=== PATIENT | female | born 1975 | race Caucasian/White ===

== ENCOUNTER 2016-08-21 08:06 | Day surgery (SDC) | payer OTHER ==
--- NOTE | 2016-08-17 08:14 | PCM.HPSURG ---
Subjective Date of Service: Aug 06, 2016 Referring Provider: Admitting Physician: Primary Care Physician: Win Burkett MD Attending Physician: Carlos Walls MD Chief Complaint SEE ABOVE History of Present Illness Patient: Radha Hightower Date of : 1975 Visit Type: Pre Op Visit Date: 08/06/2016 01:00 PM This 40 year old female presents for Preop MIS L4-5 Mandeep. Decopress/Microdisc & Fat Graft. History of Present Illness: 1. Preop MIS L4-5 Mandeep. Decopress/Microdisc & Fat Graft Radha Hightower is a 40 year old female referred by the primary care Provider ( PCP) Luisa YAN who presents today's date 08/06/2016 for a preoperative type of appointment concerning the decision for surgery involving minimally invasive microscopic bilateral lumbar sacral decompression at the L4- 5 level with approach from the right side, microdiscectomy, & harvest of subcutaneous fat from separate incision for epidural fat graft secondary to a diagnosis of lumbar radiculopathy with related complaints of severe, intractable , and debilitating lower back pain radiating to the bilateral lower extremities with numbness, & paresthesias. This patient was last evaluated by Dr. Carlos Walls M.D. on 06/26/2016 documenting persistent lower back and bilateral leg pain right greater than left. Patient has a chronic central disc herniation asymmetric to the left with associated central canal stenosis. She had an epidural injection with Dr. Reynoso at the L4-L5 level and had significant improvement of her symptoms after the injection. The steroid effect wore off and the patient's pain worsened and the patient was evaluated in the emergency room and MRI scan was obtained with an diffusion operator imaging. This showed evidence of moderate posterior central disc protrusion slightly asymmetrically left AP diameter is 6 mm there was evidence of a small right posterior posterior disc protrusion at L2-3. No history of any progressive weakness or recent changes in bladder or bowel dysfunction. According to Dr. Walls the patient has chronic & persistent bilateral lumbar radiculopathy secondary to central & slightly left-sided disc herniation causing associated acquired spinal & lateral recess narrowing which improved on a temporary basis after diagnostic epidural steroid injection. The patient has failed conservative treatment & is an appropriate candidate to proceed with lumbar spinal decompression epidural fat graft. Dr. Walls & the patient discussed all the risks and benefits associated with previous seizure as well as reasonable expectations with respect to surgical outcomes & patient elected to proceed with surgery as planned. The patient has a reported pertinent past medical, surgical, family, & social history for bilateral detached retinal repair, hysterectomy, breast reduction, laparotomies, tonsillectomy, appendectomy, hypertension, obesity, fibromyalgia, Connective tissue disorder, interstitial cystitis, history of peripheral edema, dysuria, unrelated chronic urinary incontinence, chronic joint pain, depression , anxiety, chronic pain management, & possible chronic pain syndrome with no other then the above known positive history &/or review of all other organ systems. The patient's related complaints have been a serious detriment to their happiness and activities of daily living. Having failed conservative treatment the patient presents today for their decision for surgery appointment involving minimally invasive microscopic bilateral lumbar sacral decompression at the L4- 5 level with approach from the right side, microdiscectomy, & harvest of subcutaneous fat from separate incision for epidural fat graft for treatment of lumbar radiculopathy; related to severe, intractable, and debilitating lower back pain radiating to the bilateral lower extremities with numbness, & paresthesias. The procedure is scheduled to be performed by Dr. Carlos Walls M.D. on 03/23/2017. PERIOPERATIVE NOTE: We have requested authorization to continue or recommended changes for her Hydroxychloroquine/Plaquenil perioperatively with surgery scheduled on 08/21/16 from the patient's General Matcher Dr. Rekha Phillips M.D. # with response still pending? Medical/Surgical/Interim History Reviewed, no change. Last detailed document date:08/06/2016. Family History: Reviewed, no changes. Last detailed document date:08/06/2016. Social History: Tobacco use reviewed. Reviewed, no changes. Last detailed document date: 08/06/2016. Allergies: Ingredient Reaction Medication Name Comment SULFAMETHOXAZOLE Hives Bactrim TRIMETHOPRIM Hives Bactrim Reviewed, no changes. Review of Systems System Neg/Pos Details MS Positive Myalgia. Psych Negative Anxiety and depression. Neuro Negative Dizziness, headache and seizures. GI Negative Abdominal pain, constipation, diarrhea, nausea and vomiting. Negative Dysuria, urge incontinence and urinary incontinence. Cardio Negative Chest pain, irregular heartbeat/palpitations, leg swelling and pacemaker. Constitutional Negative Chills and fever. Christopher/Lymph Negative Blood clots. Respiratory Negative Dyspnea, apnea and wheezing. Endocrine Negative Weight gain and weight loss. MS Negative Back pain, bone/joint symptoms and muscle weakness. ENMT Negative Hearing loss. Eyes Negative Double vision and vision loss. Integumentary Negative Mrsa and rash. Vital Signs Height Time ft in cm Last Measured Height Position % 12:36 PM 5.0 6.00 167.64 08/06/2016 Weight/BSA/BMI Time lb oz kg Context % BMI kg/m2 BSA m2 12:36 PM 186.20 84.459 dressed with shoes 30.05 Blood Pressure Time BP mm/Hg Position Side Site Method Cuff Size 12:36 PM 109/70 sitting left wrist automatic adult large Temperature/Pulse/Respiration Time Temp F Temp C Temp Site Pulse/min Pattern Resp/ min 12:36 PM 98.7 37.1 temporal 60 regular Pain Scale Time Pain Score Method 12:36 PM 7/10 Numeric Pain Intensity Scale Measured By Time Measured by 12:36 PM Denise Fields MA Physical Exam Exam Findings Details Comments Gen.: Patient was examination and appears to be a moderate muscle skeletal discomfort HEET: Normal with full range of motion Chest : Clear P and A Heart: Regular rate and rhythm Abdomen; soft non-tender normal bowel sounds Ext.: 5/5 strenght. Numbness in the L4 and L5 distribution Back: Evidence of involuntary paraspinous muscle spasm. Radiographic imaging: Report from the MRI scan performed on 06/25/2016 is evidence of moderate posterior disc protrusion centrally asymmetrical left side. This causes central canal stenosis of moderate degree and moderate to severe lateral recess narrowing.. Assessment/Plan # Detail Type Description 1. Assessment Lumbar radiculopathy (M54.16). 2. Assessment Preoperative examination (Z01.818). Patient Plan We including your Attending Surgeon have discussed the risks and benefits associated your scheduled procedure which you have verbally acknowledged understanding including but not limited to the possibility of an outcome that we are unable to predict or was not mentioned. 1. You are scheduled for a minimally invasive microscopic bilateral lumbar sacral decompression at the L4-5 level with approach from the right side, microdiscectomy, & harvest of subcutaneous fat from separate incision for epidural fat graft with Dr. Carlos Walls M.D. at [facility] on . 2. Check in time 8 a.m. Also please ignore instructions below if told otherwise by your preadmission nurse or if you do not take the medications listed below. 3. Nothing to eat after midnight the night before surgery. You may take all of your "approved" medications with small sips of water. Remember to take your a.m. hypertension medication if it is a beta yamilet and ends in "olol. Otherwise ask your doctor if you need to hold your a.m. hypertension medication. 4. No aspirin, ibuprofen, Naprosyn, or other NSAIDs starting 7 days prior to surgery. 5. Please stop Warfarin/Coumadin or other blood thinners such as Plavix, Aggrenox, or Xarelto 7 days prior to your surgical procedure and follow specific instructions from your prescribing provider. 6. Please stop Lovenox bridging in the morning one day prior to procedure. 7. Please stop Suboxone/Buprenorphine at least 4 days prior to procedure. 8. Go to the hospital today to get her preoperative testing done. Take the order form to the surgery desk on the second floor of the [facility], [facility] (main entrance next to the emergency entrance). I will notify you if there is any test results that require further workup prior to surgery. 9. Follow the instructions you were given today, use the cleansing cloths the night before as well as the morning of her surgery. 10. If you are prescribed inhalers, CPAP or BiPAP machines you use at home bring along with you to the hospital. 11. ONLY If you take medications for Diabetes: If you have an insulin pump continue lowest (typically night-time) basal rate into the a.m. If you do not have a pump check h your a.m. blood sugar and hold insulin if BS less than 100. If you are taking long-acting, intermediate acting (NPH) or 70/30 preparation : Take half on day of procedure. If you are taking ultra long-acting insulin such as glargine, Lantus either at night or in the a.m. continue as scheduled ( including day of surgery). If you take short acting regular insulin (insulin not delivered via pump) discontinue on day of procedure. 12. Please call if you have any questions before your surgery: [phone]. Today's instructions/counseling include(s) Pre-operative instructions given to the patient and or legal wire rope sales representative(s) orally and in writing. 13. Our office will contact you if there are any test results that require further workup prior to surgery. Provider Plan The patient's history and examination as well as radiological findings were reviewed with Dr. Carlos Walls M.D. and conveyed the patient in detail. The findings are consistent with lumbar radiculopathy and are most likely the cause of the patient's severe, intractable, debilitating low back pain radiating to the bilateral lower extremities numbness, & paresthesias. The patient has failed extensive conservative treatment for this condition. The treatment options were discussed with the patient. The options include attempt to live with the condition, reattempt conservative treatment, try a pain management intervention / injection or consider a surgical intervention. We are not extremely optimistic that further conservative treatment, pain management intervention and/or injection will adequately resolve the patient's symptoms of severe, intractable, debilitating low back pain radiating the bilateral lower extremities with numbness & paresthesias. Therefore we recommend minimally invasive microscopic bilateral lumbar sacral decompression at the L4-5 level with approach from the right side, microdiscectomy, & harvest of subcutaneous fat from separate incision for epidural fat graft. The patient was provided/offered educational materials pertaining to their diagnosis and the above discussed procedure. We discussed the risks and benefits associated with this surgery. A spine model was used to explain the nature of this type of surgery. The risk of the required anesthesia was also mentioned including but not limited to organ failure such as heart attack, pneumonia and stroke even . The risk of this type of surgery was also mentioned. Including but not limited to an unsuccessful outcome, residual symptoms, referred or radiating posterior spinal myofascial inflammatory pain or spasm, post operative instability, instrumentation failure, sensory changes, blood loss, blood clots, wound infection, spinal cord or nerve damage, CSF or lymph leak, damage to neighboring structures such as the abdominal vasculature, bowel, ureter, and bladder, resulting in temporary or permanent dysfunction, even disability, paralysis, and . The recovery of this type of surgery was also mentioned. There is a 15% chance of recurrent disc herniation with a discectomy. The chances for improvement of the bilateral lower extremity lumbar radiculopathy related symptomology at one year is 70-80%. The chances of improvement of local mechanical &/or unrelated lower back pain is 50%. The patient verbalized understanding all the risks and benefits, knowing that it is impossible to predict or guarantee every surgical outcome; and would like to proceed with the above discussed procedure anyways. Surgery is scheduled for 08/21/2016. The standard [facility] preoperative screening tests, medicine restrictions, and logistical protocols apply. Any preoperative testing is within normal limits to undergo the above discussed procedure unless otherwise noted in the medical record. PERIOPERATIVE NOTE: We have requested authorization to continue or recommended changes for her Hydroxychloroquine/Plaquenil perioperatively with surgery scheduled on 08/21/16 from the patient's General Matcher Dr. Rekha Phillips M.D. # with response still pending? Clinical Guidelines (Reviewed, no changes:Last detailed document date:) Medications (added, continued or stopped this visit): Start Date Medication Directions Stop Date bupropion HCl SR 150 mg tablet,sustained-release take 1 tablet by oral route 2 times every day clonazepam 0.5 mg tablet take 1 tablet by oral route 3 times every day 08/20/2016 cyclobenzaprine 5 mg tablet take 1-2 tablet by oral route every 8 hours as needed for spasm. hydrocodone 10 mg-acetaminophen 300 mg tablet take 1 tablet by oral route every 6 hours as needed hydroxychloroquine 200 mg tablet take 1 tablet by oral route every day Imitrex 50 mg tablet take 2 tablet by oral route once with fluids as early as possible after the onset of a migraine attack;may repeat after 2 hours if headache returns, not to exceed 200mgin 24hrs 08/20/2016 Percocet 5 mg-325 mg tablet take 1 - 2 tablet by oral route every 4 - 6 hours as needed for pain pravastatin 20 mg tablet take 2 tablet by oral route every day propranolol 40 mg tablet take 1 tablet by oral route 2 times every day sumatriptan 50 mg tablet take 2 tablet by oral route once with fluids as early as possible after the onset of a migraine attack;may repeat after 2 hours if headache returns, not to exceed 200mgin 24hrs 08/20/2016 Zofran ODT [address] 1 tablet by translingual route every 8 hours as needed for nausea on top of the tongue where it will dissolve, then swallow 08/21/2016 Counseling/Educational Factors: Counseling / educational factors reviewed. Counseling / educational factors reviewed. This is a visit of 60 minutes. 50 minutes were spent counseling. This document may have been created using voice recognition software or other electronic means and may contain inadvertent crystal flat grinder errors. Provider: Glen ELLIOTT 08/06/2016 03:26 PM Document generated by: Glen Azul 08/06/2016 03:26 PM CC Providers: Luisa Hooper [address] [place] [address]- Luisa Hooper [address] [place] [address]- Rekha Phillips [address] [place] [address] [address] [place] [address] w maurice Petersen s r c l i n i c s . o r g Allergy Allergies: Coded Allergies: shellfish derived (Verified Allergy, Mild, 01/20/16) PT STATES THAT SHE TOLERATES IODINE AND CONTRAST WITHOUT COMPLICATIONS. sulfamethoxazole (Verified Allergy, Unknown, 01/19/16) trimethoprim (Verified Allergy, Unknown, 01/19/16) PMH Female/Male History Reproductive History Female: Denies: Currently ? (HYSTERECTOMY) Other History Diabetes: No Glen Azul PA-C Aug 17, 2016 08:14
[2016-08-21] VITALS (8 sets, daily range): BP systolic 94–121; BP diastolic 44–81; PULSE 68–80; RESP 14–18; O2SAT 92–99
[~2016-08-21] VITALS: Ht 167.6 cm; Wt 83.6 kg
[~2016-08-21 08:06] MED LIST: BUPR150T9 PO; Bacitracin 50,000 unit Inj IRRIGATION ONE; Bupivacaine Liposome 1.3% 20 mL Inj INFILTRATE ONE; CYCL5TAB PO; CeFAZolin Inj 2 GM in IV Premix 1 EACH IV ONE; HYDR-3089 PO; HYDR200T5 PO; NITR100 PO; OXYC1TAB24 PO; PRAV20TA2 PO; PROP40TA5 PO; SUMA50TA31 PO; Thrombin Powder 5,000 Unit TOPICAL ONE; ZOF8 PO; [UNRECOGNIZED DRUG - OTHER] PO
[2016-08-21] MEDS ORDERED: Dexamethasone 4 mg/mL Inj ONE (08:07)
[2016-08-21] MEDS ORDERED: Succinylcholine Chloride 20 mg/mL 5 mL Inj ONE (08:07)
[2016-08-21] MEDS ORDERED: MetoCLOpramide 5 mg/mL 2 mL Inj ONE (08:07)
[2016-08-21] MEDS ORDERED: Propofol 10,000 mCg/mL 20 mL Inj ONE (08:07)
[2016-08-21] MEDS ORDERED: fentaNYL-PF 50 mCg/mL 2 mL Inj ONE (08:07)
[2016-08-21] MEDS ORDERED: Ondansetron 2 mg/mL 2 mL Inj ONE (08:07)
[2016-08-21] MEDS: Lactated Ringer's 1,000 ML IV SCH ×2 (08:17→09:58)
[2016-08-21] MEDS ORDERED: ALBU8.5H2 INH (08:23)
[2016-08-21] MEDS ORDERED: KLO5T PO (08:23)
[2016-08-21 08:55] LABS: APPEARANCE,URINE HAZY (CLEAR,HAZY); COLOR,URINE STRAW (YELLOW); OCCULT BLOOD,URINE NEGATIVE (NEGATIVE); PH,URINE 5.5 (5.0-8.0); UROBILINOGEN,URINE NORMAL (NORMAL)
[2016-08-21] MEDS ORDERED: Lactated Ringer's 500 ML IV PRN (09:31)
[2016-08-21] MEDS ORDERED: Lactated Ringer's 1,000 ML IV SCH (09:31)
[2016-08-21] MEDS ORDERED: MetoCLOpramide 5 mg/mL 2 mL Inj IVPUSH PRN ×2 (09:35→12:40)
[2016-08-21] MEDS ORDERED: Phenylephrine 10,000 mCg/mL Inj IVPUSH PRN (09:35)
[2016-08-21] MEDS ORDERED: fentaNYL-PF 50 mCg/mL 2 mL Inj IVPUSH PRN (09:35)
[2016-08-21] MEDS ORDERED: hydrALAZINE 20 mg/mL Inj IVPUSH PRN (09:35)
[2016-08-21] MEDS ORDERED: EPHEDrine Sulfate 50 mg/mL Inj IVPUSH PRN (09:35)
[2016-08-21] MEDS ORDERED: Atropine 0.4 mg/mL Inj IVPUSH PRN (09:35)
[2016-08-21] MEDS ORDERED: Dexamethasone 4 mg/mL Inj IVPUSH PRN (09:35)
[2016-08-21] MEDS ORDERED: HYDROmorphone 1 mg/mL Inj IVPUSH PRN ×2 (09:35→12:40)
[2016-08-21] MEDS ORDERED: Ondansetron 2 mg/mL 2 mL Inj IVPUSH PRN ×3 (09:35→12:40)
[2016-08-21] MEDS ORDERED: Labetalol 5 mg/mL 4 mL Inj IV PRN (09:35)
[2016-08-21] MEDS ORDERED: Bupivacaine-MPF 0.25%/EPI 30 mL Inj INJ ONE (09:58)
--- NOTE | 2016-08-21 11:01 | DRSVH ---
PROCEDURE: X-RAY LUMBAR SPINE, 2 OR 3 VIEW INDICATIONS: LUMBAR DISCECTOMY, INTRAOPERATIVE IMAGES TECHNIQUE: 2 views of the lumbar spine were acquired. COMPARISON: Outside Film, MR, MR LUMBAR SPINE WO CON, 04/10/2015, 15:27. Outside Film, MR, LUMBAR S PINE W/O CONTRAST, 05/19/2013, 10:18. FINDINGS: 2 intraoperative fluoroscopy images demonstrate a surgical port at level of L4-L5. IMPRESSION: Surgical port level of L4-L5. Dictated by: Piedad Mon M.D. on 08/21/2016 at 10:58 Approved by: Piedad Mon M.D. on 08/21/2016 at 10:59
[2016-08-21] MEDS ORDERED: 0.9% Sodium Chloride 1,000 ML IV SCH (12:38)
--- NOTE | 2016-08-21 12:38 | PCM.DISURG ---
Surgical Discharge Instruction Date of Service Aug 21, 2016 Dates of Hospitalization Date of Hospital Admission Day Surgery status 08/21/2016 Providers Admitting Physician: Primary Care Physician: Win Burkett MD Attending Physician: Carlos Walls MD Discharge Diagnosis Discharge Diagnosis Status post minimally invasive microscopic bilateral simple lumbar spinal decompression at L4-5 with approach from the right side, microdiscectomy, & harvest of subcutaneous fat for epidural graft from separate incision Post Operative diagnosis Status post minimally invasive microscopic bilateral simple lumbar spinal decompression at L4-5 with approach from the right side, microdiscectomy, & harvest of subcutaneous fat for epidural graft from separate incision Additional Instructions Discharge Instructions Minimally Invasive Lumbar Laminectomy, Decompression, & Microdiscectomy Postoperative Instructions What is my recovery like? Patient is usually go home the same day of surgery A lumbar brace is worn for comfort only. What are my restrictions? You should not lift anything heavier than five pounds. You should not perform any excessive bending from the waist or twisting movements. Can I Shower? You may shower when you go home. You must remove the outside dressing on the 7th day after surgery, or change as needed if soiled or saturated (replacing new sterile gauze & water proof dressing) otherwise leave alone. The remaining small pieces of tape (steri-strips) directly on top of the incision may get wet. The steri-strips will fall off on their own. Can I drive? No, you should not drive until specifically given permission from your Doctor in a follow up appointment. Most Patient's can drive in 2-3 weeks if they are not taking narcotic pain medications or muscle relaxers. You may ride in a car, but should avoid trips longer than two hours in duration. When can I return work / sports? Your Doctor will discuss your return to work with you on your first postoperative follow-up appointment. Most patients may return to work within 2 weeks for sedentary jobs. More physically demanding jobs may require 3-6 months of healing before such work can be considered. When should I call the doctor? You should call your Doctor or go to the Emergency Department if you develop chest pain, shortness of breath, a temperature greater than 101.5 F, severe uncontrolled pain or weakness, loss of bowel or bladder function, choking, lots or drainage, pus discharge or constipation. Instructions Regarding Comfort & Pain Medication Use: During the recovery period , even with the use of pain medication, you may experience pain at the site of surgery. You may also have the same type of pain you had before surgery. Please use your pain scale as a guide for taking your pain medication. When your pain is greater than 4 out of 10, or when your pain reaches your personal tolerable level of pain, take your pain medication as prescribed. Use your pain medication on an 'as needed' basis. This means if your pain level is within your tolerable level of pain you DO NOT need to take the medication. As you get better, you will notice you can increase the time interval between doses and decrease the number of tablets you are taking, gradually taking less and less pain medication. Taking pain medication when it is not necessary (for example when your pain is tolerable or acceptable) can result in dangerous side effects and over- sedation. Signs and symptoms of over-sedation include: drowsiness, excessive sleeping, slow or difficult breathing, slurred speech, impaired thinking, confusion, impaired motor coordination. If you have any of these symptoms stop taking the medication and immediately contact your doctor. IF SYMPTOMS ARE LIFE THREATENING CALL 911. To decrease pain and swelling, frequently apply an ice pack for 20 min intervals with at least one hour off. When to take Acetaminophen for pain? If you don't have liver problems, allergies and/or Tylenol is not in your current pain medication. Take Extra Strength Tylenol 500mg 2 tabs by mouth every 6 hours as needed for pain. DO NOT EXCEED 8 TABS PER DAY. Follow Up Plan Follow-up Provider (F9): Glen Azul PA-C Additional Information Attending Statement All documentation reviewed & orders authorized by José Delaney Scott PA-C Aug 21, 2016 12:38
[2016-08-21] MEDS ORDERED: hydrOXYzine Pamoate 25 mg Capsule PO PRN (12:40)
[2016-08-21] MEDS ORDERED: Sodium Biphos-Phos 133 mL Enema RECTAL PRN (12:40)
[2016-08-21] MEDS ORDERED: Senna-Docusate 8.6-50 mg Tablet PO PRN (12:40)
[2016-08-21] MEDS ORDERED: Magnesium Hydroxide 10 mL Oral Concentration PO PRN (12:40)
[2016-08-21] MEDS ORDERED: Polyethylene Glycol (PEG) 17 Gm Powder PO PRN (12:40)
--- NOTE | 2016-08-21 12:40 | PCM.ANEP1 ---
Post Anesthesia Phase 1 PACU Phase 1 Assessment Date of Service: Aug 06, 2016 Vital Signs Vital Signs Date Time Temp Pulse Resp B/P Pulse Ox O2 Delivery O2 Flow Rate FiO2 08/21/16 12:30 77 15 109/58 95 Room Air 08/21/16 12:25 80 16 94/44 97 Simple Mask 10 08/21/16 12:20 79 14 120/65 99 Simple Mask 10 08/21/16 12:15 36.9 74 15 118/58 99 Simple Mask 10 08/21/16 08:31 36.4 68 16 121/81 99 Room Air Anesthetic Administered: GA Level of Alertness: Awake, talking PARNELL's with Equal Strength: Yes Pain: No Nausea or Vomiting: No Oxygen Delivery: Simple Mask Lungs: Clear to Auscultation Dermatome Level: Full Sensation Complications: No Follow up Care: No Patient Instructions Provided: Yes Yusuf Roberson MD Aug 21, 2016 12:40
--- NOTE | 2016-08-21 12:47 | PCM.HPANE ---
Patient Data Date of Service: Aug 21, 2016 Surgeon Admitting Provider: Attending Provider:Carlos Walls MD Primary Care Physician:Win Burkett MD Other Provider:Yaritza Story Anesthesia Reason for Visit Lumbar Region Radiculopathy Ht/WT & BMI Height (Feet): 5 Height (Inches): 6 Weight (Kilograms): 83.6 Body Mass Index 29.00 Allergies Coded Allergies: sulfamethoxazole (Verified Allergy, Severe, hives, 08/17/16) trimethoprim (Verified Allergy, Severe, hives, 08/17/16) shellfish derived (Verified Allergy, Unknown, unknown, 08/17/16) PT STATES THAT SHE TOLERATES IODINE AND CONTRAST WITHOUT COMPLICATIONS. Past Anesthesia History Anesthesia History: Denies:: Anesthesia Reactions, Malignant Hyperthermia Diabetes History Hx Diabetes?: No Current Bedside Blood Glucose: 93 MRSA MRSA: No Medications Home Meds Incl Beta Vivian: Yes Date Beta Vivian Taken: Aug 21, 2016 Time Beta Vivian Taken: 0550 Reported Medications Albuterol HFA (Proair HFA)8.5 Gm Hfa.aer.ad1-2 Puff INH PRN #9 08/21/16 Clonazepam 0.5 Mg Tablet0.5 Mg PO TID PRN For Spasm #30 08/21/16 Nitrofurantoin Monohyd/M-Cryst (MacroBid)100 Mg Yywtain574 Mg PO BID Ref 0 X 5 DAYS START: 08/17/2016 08/17/16 Ondansetron (Zofran)8 Mg Tablet8 Mg PO Q8H PRN For Nausea 08/17/16 oxyCODONE-Acetaminophen 5-325 mg 1 Each Tablet1-2 Tab PO Q4-6H PRN For Pain Ref 0 08/17/16 Cyclobenzaprine 5 Mg Tablet5-10 Mg PO TID PRN Spasm 08/17/16 Propranolol HCl 40 Mg Rrgzxj35 Mg PO BID Ref 0 01/19/16 Pravastatin 20 Mg Xwgnvh60 Mg PO DAILY Ref 0 01/19/16 Sumatriptan Succinate (Imitrex)50 Mg Cczdnf30-040 Mg PO PRN 01/19/16 Hydroxychloroquine Sulfate 200 Mg Ahoyer164 Mg PO BID #30 TABLET Ref 0 01/19/16 Bupropion HCl (Zyban)150 Mg Tablet.er150 Mg PO BID 01/19/16 Discontinued Reported Medications Hydrocodone-Acetaminophen 10-300 mg 1 Each Tablet1 Tablet PO Q6H PRN For Pain Ref 0 08/17/16 [Donazepam] No Conflict Check0.5 Mg PO TID PRN PRN 08/17/16 HydrOXYzine HCl 10 Mg Lvhfsg02 Mg PO QID PRN For Itching Ref 0 01/19/16 Hydrocodone-Acetaminophen 7.5-325 mg 1 Each Tablet1 Tablet PO q6hr PRN For Pain Ref 0 01/19/16 Gabapentin 300 Mg Adjjvon485 Mg PO DAILY Ref 0 01/19/16 Clonazepam 0.5 Mg Tablet0.5 Mg PO TID PRN For Anxiety Ref 0 01/19/16 Amitriptyline 10 Mg Dcoyev52 Mg PO TID Ref 0 01/19/16 History History of ENT Problems?: Yes HEENT History: Denies:: Cataracts (S/P B/L RETINAL DETACHMENT RPR) Denture Type: None Teeth Condition: Within Normal Limits Other HEENT Pertinent History: S/P TONSILLECTOMY Hx of Heart Problems?: Yes Cardiovascular History: Positive for:: Edema (HX PERIPHERAL EDEMA) Hypertension (HYPERLIPIDEMIA) Denies:: Heart Murmur Hx of Respiratory Problem?: No Respiratory History: Denies:: Use of C-PAP Machine Hx Neurologic Problems?: Yes Neurological History: Denies:: CVA Other Neurological Pertinent: HX CHRONIC PAIN SYNDROME W/ CHR. PAIN MGMT Hx of GI Problems?: Yes Gastrointestinal History: Denies:: Gastroesphageal Reflux Heartburn Other GI Pertinent History: S/P APPY,LAPAROSCOPY X2 Hx of Problems?: Yes Genitourinary History: Positive for:: Urinary Tract Infection (CURRENTLY BEING STARTED ON MACROBID/HX INTERSTITIAL CYSTITIS) HX of Peritoneal Dialysis: No Female Hx: Positive for:: Problems with Breasts? (S/P BREAST REDUCTION) Denies:: Currently (hx hysterectomy) Skin History: Denies:: History Skin Disorders? Pressure Ulcers Hx Musculoskeletal Problems?: Yes Musculoskeletal History: Positive for:: Fibromyalgia (HX CONNECTIVE TISSUE DISORDER) Musculoskeletal Trauma (C/OF JOINT PAIN/MYALGIAS) Denies:: Back Injury (C/OF BACK PAIN S/P LUMBAR MADISON'S) Hx of Psycho/Social Problems?: Yes Psycho Social History: Positive for:: Anxiety Hx Depression Hx Surgeries?: Yes (MADISON'S,HYST,LAPS X2,B/L RETINAL DETACHMENTS,BREAST REDUCT., TONSILS,APPY) Hx Any Other Health Problems?: Yes Other History: Denies:: Cancer Endocrine Disease Hospitalization Thyroid Disease Hx Diabetes: NoBedside Blood Glucose: 93 Hx Alcohol Use: NoHx Substance Use: NoHave You Smoked inLast 12 mo: No Stop/Bang Treated for Sleep Apnea?: No Do You Have a CPAP Machine?: No S-Snoring: Do You Snore Loudly: No T-Tired: feel tired, fatigued: Yes O-Obsered: Observed not breath: No P-Blood Pressure: treated: Yes B- Body Mass Index > 35 kg/m2: No A- Age over 50: No N- Neck Large Circumference: No G- Gender Male: No NAJMA Total Score: 2 NAJMA Risk Assessment: Low Risk, <3 Yes Risk Assessment Category Category 1A: Patient has history of documented sleep apnea, and HAS NOT received any narcotic, sedative or anesthesia administration during this stay. Category 1B: Patient has history of documented sleep apnea, and HAS received any narcotic , sedative or anesthesia administration during this stay Category 2: Patient has SUSPECTED Obstructive Sleep Apnea, and HAS received any narcotic , sedative or anesthesia administration during this stay. Category 3: Patient has SUSPECTED Obstructive Sleep Apnea and HAS NOT received narcotic, sedative or anesthesia administration during this stay. Category 4: Outpatient in Procedural Areas with known sleep apnea or who screen positive for High Risk via the STOP/BANG questionnaire. Exam Exam Vital Signs Vital Signs Date Time Temp Pulse Resp B/P Pulse Ox O2 Delivery O2 Flow Rate FiO2 08/21/16 12:40 Simple Mask 08/21/16 12:30 77 15 109/58 95 Room Air 08/21/16 12:25 80 16 94/44 97 Simple Mask 10 08/21/16 12:20 79 14 120/65 99 Simple Mask 10 08/21/16 12:15 36.9 74 15 118/58 99 Simple Mask 10 08/21/16 08:31 36.4 68 16 121/81 99 Room Air General Appearance: Alert, Oriented X3, Cooperative HEENT/AIRWAY: MP 2, Neck Movement (Full), Mouth Opening (Short TM distance) Lungs: Clear to Auscultation, Normal Air Movement Heart: Regular Rate/Rhythm, Normal S1, Normal S2 Meds/Labs/Diagnostics Admission Meds Current Medications Lactated Ringer's (Lr) 1,000 ml @ 120 mls/hr Q8H20M IV Last administered on 09:58; Start 08/21/16 at 05:00; Stop 08/21/16 at 13:19 Bacitracin (Bacitracin Inj) 50,000 unit ONCE ONCE IRRIGATION Last administered on 08/21/16 09:58; Start 08/21/16 at 06:00; Stop 08/21/16 at 06:01 ; Status DC Thrombin (Thrombin Powder) 5,000 unit ONCE ONCE TOPICAL Last administered on 09:58; Start 08/21/16 at 06:00; Stop 08/21/16 at 06:01; Status DC Scopolamine (Transderm-Scop Patch) 1.5 mg STK-MED ONCE TOPICAL Last administered on 08/21/16 09:32; Start 08/21/16 at 09:29; Stop 08/21/16 at 09:31 ; Status DC Bupivacaine HCl/ Epinephrine Bitart (Sensorcaine-MPF 0.25%/EPI Inj) 30 ml STK- MED ONCE INJ Last administered on 08/21/16 09:58; Start 08/21/16 at 09:58; Stop 08/21/16 at 10:40; Status DC Bedside Blood Glucose: 93 Labs Test 08/21/16 08:28 Urine Color Straw (YELLOW) Urine Appearance Hazy (CLEAR,HAZY) Urine pH 5.5 (5.0-8.0) Urine Specific [place] 1.005 (1.003-1.035) Urine Protein Negativemg/dL (NEG,TRACE) Urine Glucose (UA) Negativemg/dL (NEGATIVE) Urine Ketones Negativemg/dL (NEGATIVE) Urine Occult Blood Negative (NEGATIVE) Urine Nitrite Negative (NEGATIVE) Urine Bilirubin Negative (NEGATIVE) Urine Urobilinogen Normalmg/dL (NORMAL) Urine Leukocyte Esterase Negative (NEGATIVE) Urine RBC 0-2/hpf (0-2) Urine WBC 0-5/hpf (0-5) Urine Epithelial Cells Occasional/hpf (NONE-MOD) Urine Crystals None seen (NONE SEEN) Urine Bacteria Moderate/hpf (NONE-FEW) Urine Hyaline Casts None/lpf (NONE) Urine Granular Casts None seen (NONE SEEN) Urine Waxy Casts None seen (NONE SEEN) Urine Red Blood Cell Casts None seen (NONE SEEN) Urine White Blood Cell Casts None seen (NONE SEEN) Urine Mucus None seen (None Seen) Urine Trichomonas None seen (NONE SEEN) Urine Yeast None (NONE SEEN) Urinalysis Comment None Urine Culture Reflexed Indicated Plan Impression Patient chart reviewed, patient interviewed and anesthestic plan with risks, benefits, and alternatives discussed, and informed consent obtained. NPO per Anesth. Guidelines: Yes ASA Physical Status: ASA2 Mod Systemic Disease Anesthetic Plan: GA Bene/Risks/Altern/Consents: Yes HP Complete Prior to Induction: Yes Yusuf Roberson MD Aug 21, 2016 12:47
[2016-08-21] MEDS ORDERED: CeFAZolin Inj 2 GM in IV Premix 1 EACH IV SCH (16:30)
[2016-08-21] MEDS ORDERED: Senna-Docusate 8.6-50 mg Tablet PO SCH (20:30)
--- NOTE | 2016-08-22 01:32 | OP ---
[address] [address] OPERATIVE REPORT PATIENT: SHELBIE LANCE : 1975 MR#: [id number] ADMIT: 08/21/2016 JOB ID: [id number] DATE OF SURGERY: 08/21/2016 PREOPERATIVE DIAGNOSIS(ES): Bilateral lumbar radiculopathy secondary to chronic central disc herniation and moderate to severe lateral recess narrowing, L4-L5, right greater than left. POSTOPERATIVE DIAGNOSIS(ES): Bilateral lumbar radiculopathy secondary to chronic central disc herniation and moderate to severe lateral recess narrowing, L4-L5, right greater than left. OPERATIVE PROCEDURE: 1. METRx microscopic bilateral recess decompression, L4-L5, approached from the right side, with lateral recess decompression of the L4 and L5 nerve roots. 2. Right L4-L5 microlumbar diskectomy. 3. Placement of epidural fat graft obtained from a separate incision. 4. Intraoperative fluoroscopy of less than one hour. SURGEON: Carlos Walls MD [place] AUDITOR: Glen Azul PA-C ANESTHESIA: General endotracheal. COMPLICATIONS: None. ESTIMATED BLOOD LOSS: Approximately 40 cc. The patient did not require any transfusion. FINDINGS AT TIME OF SURGERY: There was evidence of a chronic central disc herniation and moderate to severe lateral recess narrowing. Bilateral decompression was performed, as well as microlumbar diskectomy. No evidence of any CSF leak or durotomy. INDICATION: This is a 40-year-old female, who has been having chronic low back and bilateral leg pain. The patient underwent conservative treatment including epidural steroid injection which provided temporary relief. She subsequently decided to proceed with surgery. The patient is admitted at this time for a minimal access bilateral recess decompression at the L4-L5 level, approached from the right side. Indications and complications of the procedure were explained to the patient preoperatively. Chances for symptomatic improvement would be 70% at one year. The patient acknowledged understanding and wanted to proceed. DESCRIPTION OF PROCEDURE: The patient was identified in the preop area. L4-L5 was marked on the patient's right side on her back. The patient's history, examination, medications, allergies were reviewed. She was then taken to the operating room where she underwent general endotracheal anesthesia without complications. She was placed in the prone position on the Ilya frame in a flexed position. The patient's lower extremities were properly padded and positioned. The lower back was prepped and draped in the usual sterile fashion for minimal access decompression. After appropriate prepping and draping, the appropriate time-out in the OR was performed, confirming the patient's name, date of , planned procedure, and presence of appropriate instrumentation. The patient's NAJMA, beta block, diabetic and MRSA status was reviewed. Antibiotic administration, DVT prophylaxis and appropriate imaging on the screen was confirmed. The skilled assistance of the PA, Glen Azul, was necessary for successful completion of the case. He was essential for the proper positioning, retraction of the thecal sac and nerve roots, as well as general safety of the patient. After the time-out was completed, a spine needle was inserted adjacent to the spinous process of L4 and L5 on the right side. Intraoperative fluoroscopy was brought into place, verifying the L4-L5 level. Once the level was verified, the right paramedian soft tissue was infiltrated with 0.25% Marcaine with epinephrine. A right paramedian incision was made, carried down through the skin and subcutaneous tissue. Subcutaneous fat graft was obtained. A second incision was made and carried down through the skin and subcutaneous tissue, down to the level of the lumbodorsal fascia. First blunt dilating operating tube was then placed under fluoroscopic guidance at the L4-L5 level. Sequential dilation was undertaken until a 70 x 22 mm operating tube using the 121 [employer] minimal access system. The L4-L5 level was verified by Radiology. Once the tube was in place, it was then connected to the articulating arm. AP view shows that the operating tube was adjacent to the spinous process of L4 and L5 on the right side. Fluoroscopy was removed and the operating microscope was brought into place. Overlying soft tissue was then removed using Bovie cautery and straight pituitary forceps. High-speed drill was then used to thin the inferior lamina of L4 and the superior lamina of L5. A generous hemilaminotomy was performed with lateral recess decompression of the L4 and L5 nerve roots. Epidural veins were coagulated and cut. There was evidence of a central disc herniation causing tension on the exiting L5 root. It was elected to open the disc space laterally using a 15 blade knife and using down-pushing curettes to push disc material back into the interspace to take the tension off the thecal sac and nerve root. Once this occurred, routine diskectomy was then performed using pituitary forceps as well as down-pushing curettes and gentle retraction using nerve root retractor. Once the diskectomy was completed, there appeared to be no further significant central compression. A 0 angle curette could be placed down the L4 and L5 neural foramina without difficulty. Epidural veins were coagulated and cut, as well as the surface of the disc was coagulated and shrunk. At that point, the tube was then tilted to the left, and decompression of the central canal on the left side was performed, lateral recess decompression of the L4 and L5 nerves was performed. Once the decompression was completed, hemostasis was achieved using 2-point cautery, Gelfoam and cottonoids. The wound was irrigated with bacitracin-containing saline. Fat graft was placed on the right side where the diskectomy was performed, followed by Surgicel gauze to cover the exposed thecal sac. Tube was then carefully removed, coagulating bleeding points. Once it was removed, a #10 Palestinian drain was placed deep into the wound, brought out through a separate stab incision, and connected to bulb suction. The fascial layer was then reapproximated using interrupted 0 Vicryl suture. Subcutaneous layer was then closed using inverted 3-0 Vicryl suture. The skin was then closed using 4-0 Vicryl suture in subcuticular fashion. The incision was then dried and cleaned. This was followed by Steri-Strips. This was then covered with sterile Telfa dressing and secured using Benzoin and paper tape. The patient was then transferred to a stretcher, was awakened and extubated, taken to the PAR in stable condition. The patient tolerated the procedure well without any major complications. All sponge and needle counts were correct x2. Estimated blood loss was approximately 40 cc. MTDD
== END 2016-08-21 23:59 | disposition home or self-care (01) ==
LOC: SAS 08:06
PROVIDERS: ATTEND Neurological Surgery
DX: M54.16 Radiculopathy, lumbar region (principal); I10 Essential (primary) hypertension; M79.7 Fibromyalgia; F41.9 Anxiety disorder, unspecified; F32.9 Major depressive disorder, single episode, unspecified; G89.29 Other chronic pain; Z79.891 Long term (current) use of opiate analgesic; Z90.710 Acquired absence of both cervix and uterus
CPT/HCPCS: 15040; 63047; 63048; 72100; 76000; 81000; 87086; 87088; J0330; J0690; J1100; J2250; J2405; J2765; J3010; J7120; Q0177